=== PATIENT | female | born 1940 | race Caucasian/White ===

== ENCOUNTER 2020-08-17 13:12 | Outpatient (CLI) | payer MEDICARE, OTHER, SELFPAY ==
--- NOTE | ~2020-08-17 | DEXA_ITS ---
Bone Density Report Name: Catherine March Age: 79 Sex: Female Ethnicity: White Date of : 1940 Indication: postmenopausal; screening for osteoporosis; height loss; prior fracture; asthma or emphysema; Referring Provider: Elder Valenzuela Study: Bone densitometry was performed. Exam Date: August 17, 2020 Accession number: [id number] Bone Density: Region BMD T-score Z-score Classification AP Spine (L1, L2, L4) 1.262 2.1 4.8 Normal Femoral Neck (Left) 0.629 -2.0 0.4 Osteopenia Total Hip (Left) 0.817 -1.0 1.1 Normal Femoral Neck (Right) 0.689 -1.4 0.9 Osteopenia Total Hip (Right) 0.852 -0.7 1.4 Normal Total Hip Mean 0.835 -0.9 1.3 Normal World Health Organization criteria for BMD impression classify patients as: Normal (T-score at or above -1.0), Osteopenia (T-score between -1.0 and -2.5), or Osteoporosis (T-score at or below -2.5). 10-year Fracture Risk(1): Major Osteoporotic Fracture 22% Hip Fracture 5.8% Reported Risk Factors: [place] (), Neck BMD=0.629, BMI=29.0, previous fracture (1) FRAX(R) Version 3.08. Fracture probability calculated for an untreated patient. Fracture probability may be lower if the patient has received treatment. Clinical Information Provided by Patient: Has had a low trauma fracture Has used the following medications: Vitamin D Has the following medical conditions: Asthma or Emphysema Patient maximum height was 61.9 Menopause Age: 39 No regular weight bearing exercise Onset of menses at age 12 Number of children 3 Impression: The patient has low bone mass, based on the Left Femoral Neck T-score. The patient has an estimated ten-year risk of hip fracture of 5.8% and an estimated ten-year risk of major fracture of 22%, based on the WHO FRAX algorithm. The patient has risk factors, including: previous fracture. Discussion: BONE DENSITY IS LOW AT ONE OR MORE SKELETAL SITES. THE PATIENT'S BMD AND CLINICAL RISK FACTORS CONTRIBUTE TO THIS PATIENT'S HIGH RISK OF FRACTURE. This patient's lowest T-score is low at one or more skeletal sites. It meets the World Health Organization's (WHO) criteria for ?low bone mass? (T-score between -1.0 and -2.5). The patient's 10-year risk of hip fracture and 10 year risk of a major osteoporotic fracture as calculated by FRAX exceeds the threshold where pharmacological therapy is recommended by the National Osteoporosis Foundation (NOF). However, all treatment decisions require clinical judgment and consideration of individual patient factors, including patient preferences, comorbidities, previous drug use, risk factors not captured in the FRAX model (e.g., frailty, falls, vitamin D deficiency, increased bone turnover, interval significant decline in bone density) and possible under or overestimation of fracture risk by FRAX. The
== END 2020-08-17 13:13 ==
PROVIDERS: PCP Family Medicine; Visit Provider Physician Assistant Medical
DX: Z78.0 Asymptomatic menopausal state (principal); M85.852 Other specified disorders of bone density and structure, left thigh; M85.851 Other specified disorders of bone density and structure, right thigh
CPT/HCPCS: 77080

== ENCOUNTER 2020-08-17 15:12 | Outpatient (CLI) | payer MEDICARE, SELFPAY ==
--- NOTE | ~2020-08-17 | US_ITS ---
EXAMINATION: US carotid duplex BI DATE: 08/17/2020 15:42 INDICATION: Occlusion and stenosis of bilateral carotid arteries. TECHNIQUE: Grayscale, color Doppler, and pulsed Doppler images of the cervical carotid arteries were obtained. The degree of vessel stenosis is placed in one of the following categories: normal, <50%, 5 0-69%, >=70% but less than near-occlusion, near-occlusion, or total occlusion. Note that percent sten osis relative to normal distal artery lumen diameter is indirectly measured from velocity measurement s as described by Osmani, et al. Radiology 2003; 229:340-346. COMPARISON: Ultrasound 02/18/2018 FINDINGS: RIGHT: The right common carotid artery (CCA) peak systolic velocity (PSV) is 78 cm/s. The right internal car otid artery (ICA) PSV is 120 cm/s. The right ICA end-diastolic velocity (EDV) is 28 cm/s. The right I CA/CCA PSV ratio is 1.5. Grayscale and color Doppler images yield an estimate of <50% diameter reduct ion from plaque in the ICA. There is antegrade flow in the right vertebral artery. LEFT: The left CCA PSV is 80 cm/s. The left ICA PSV is 139 cm/s. The left ICA EDV is 28 cm/s. The left ICA/ CCA PSV ratio is 1.7. Grayscale and color Doppler images yield an estimate of <50% diameter reduction from plaque in the ICA. There is antegrade flow in the left vertebral artery. IMPRESSION: 1. <50% stenosis in the right internal carotid artery. 2. <50% stenosis in the left internal carotid artery. Reviewed, dictated and finalized at location A.
== END 2020-08-17 15:13 | disposition home or self-care (01) ==
PROVIDERS: PCP Family Medicine; Visit Provider Physician Assistant Medical
DX: I65.23 Occlusion and stenosis of bilateral carotid arteries (principal); Z78.0 Asymptomatic menopausal state
CPT/HCPCS: 93880

== ENCOUNTER → 2020-09-13 02:18 | Outpatient (CLI) | payer MEDICARE, SELFPAY ==
[2020-09-13 19:19] LABS: SARS-CoV-2 RNA PCR Negative
== END ==
PROVIDERS: PCP Family Medicine; Visit Provider Internal Medicine Gastroenterology
DX: Z01.812 Encounter for preprocedural laboratory examination (principal); Z20.822 Contact with and (suspected) exposure to COVID-19
CPT/HCPCS: C9803; U0003; U0005

== ENCOUNTER 2020-09-16 00:42 | Day surgery (SDC) | payer MEDICARE, OTHER, SELFPAY ==
[2020-09-03 15:10] VITALS: BMI 26.6
[2020-09-16 07:02] VITALS: BP 157/67; PULSE 61; RESP 18; TEMP 36.4; O2SAT 100; BMI 26.6
--- NOTE | 2020-09-16 07:15 | WPDANESEPPF ---
Anes - Initial Pre Proc Eval Procedure: Operation Date: 09/16/20 08:00 Proposed Procedures p Colonoscopy - Fam Bojorquez MD Date/Time: 09/16/20 07:15 Surgeon: Fam Bojorquez MD Pre Op Diagnosis: positive cologuard Patient Data Age: 80 Gender: F Height: 4 ft 11 in Weight: 60 kg Last Vital Signs Temp 36.4 C L 09/16/20 07:02 Pulse 61 09/16/20 07:02 Resp 18 09/16/20 07:02 BP 157/67 H 09/16/20 07:02 Pulse Ox 100 09/16/20 07:02 Allergies Allergy/AdvReac Type Severity Reaction Status Date / Time amoxicillin Allergy Intermediate Hives / Verified 09/16/20 07:01 Red Face glucosamine Allergy Intermediate Other Verified 09/16/20 07:01 hyaluronic acid Allergy Intermediate KIDNEYS Verified 09/16/20 07:01 Iodine and Iodide Containing Allergy Intermediate KIDNEYS Verified 09/16/20 07:01 Produc NSAIDS (Non-Steroidal Allergy Intermediate KIDNEYS Verified 09/16/20 07:01 Anti-Inflamma codeine Allergy Unknown Unknown Verified 09/16/20 07:01 iodine Allergy Unknown Unknown Verified 09/16/20 07:01 Penicillins Allergy Unknown Unknown Verified 09/16/20 07:01 phenytoin Allergy Unknown Unknown Verified 09/16/20 07:01 Tnpevzg-Amh-Uxv Reductase Allergy Unknown Unknown Verified 09/16/20 07:01 Inhibitor Sulfa (Sulfonamide Allergy Unknown Unknown Verified 09/03/20 15:03 Antibiotics) OTHER Allergy Unknown Other Uncoded 09/03/20 15:03 ANTI-ARTHRITIC MEDS AdvReac Intermediate SWELLING Uncoded 09/03/20 15:03 Home Medications Medication Instructions Recorded Confirmed Type fluticasone propionate 50 2 spray NASAL DAILY PRN #54.6 ml 04/29/19 09/03/20 Rx mcg/actuation nasal spray,suspension nitroglycerin 0.4 mg sublingual 0.4 mg SUBLINGUAL Q5M PRN #20 07/01/19 09/03/20 Rx tablet tablet trazodone 100 mg tablet 200 mg PO .QHS #180 tablet 11/26/19 09/03/20 Rx gabapentin 100 mg capsule 100 mg PO BID #180 cap 05/27/20 09/03/20 Rx albuterol sulfate 90 mcg/actuation 2 inh INHALATION Q4H PRN #8.5 g 07/26/20 09/03/20 Rx aerosol inhaler aspirin 81 mg tablet,delayed 81 mg PO DAILY 07/26/20 09/03/20 History release torsemide 10 mg tablet 10 mg PO QAM tablet 07/26/20 09/03/20 History alirocumab 75 mg/mL subcutaneous 75 mg SUB-Q .every two weeks #8 ml 07/28/20 09/03/20 Rx pen injector febuxostat 40 mg tablet 40 mg PO DAILY #90 tablet 07/28/20 09/03/20 Rx hydrocodone 5 mg-acetaminophen 325 1 tablet PO QHS PRN #30 tablet 07/28/20 09/03/20 Rx mg tablet amlodipine 2.5 mg PO Q2D 09/03/20 09/03/20 History dicyclomine 20 mg PO Q6H PRN 09/03/20 09/03/20 History pantoprazole 40 mg PO DAILY 09/03/20 09/03/20 History spironolactone 12.5 mg PO Q2D 09/03/20 09/03/20 History carvedilol 12.5 mg tablet See Rx Instructions .ROUTE 09/07/20 Rx .COMPLEX #180 tablet Patient hx anesthesia problems: other (delayed awakening) Family hx anesthesia problems: none PMFSH Past Medical History Medical History Atherosclerotic heart disease of [place] coronary artery with angina pectoris (01/30/18) Singleton's esophagus without dysplasia (01/30/18) Chronic kidney disease, stage 4 (severe) COPD (chronic obstructive pulmonary disease) with chronic bronchitis (01/30/18) Essential hypertension Gastro-esophageal reflux (01/30/18) Hypertensive chronic kidney disease with stage 1 through stage 4 chronic kidney disease, or unspecified chronic kidney disease (01/30/18) Mixed hyperlipidemia Nonrheumatic aortic (valve) stenosis (01/30/18) Positive colorectal cancer screening using Cologuard test Postmenopause Surgical History Surgical History Presence of aortocoronary bypass graft (01/30/18) Family History Family History Father Diabetes mellitus Family history of cardiovascular disease Cerebrovascular accident Family history of congestive h
[2020-09-16] MEDS: LACTATED RINGERS 1,000 ML 150 ML IV CONT (07:20)
--- NOTE | 2020-09-16 08:10 | WPDGICN ---
Assessment and Plan Assessment and plan (1) Positive colorectal cancer screening using Cologuard test: Code(s): R19.5 - Other fecal abnormalities Status: Acute Assessment and Plan: ColoGuard test apparently was recently performed. Plan is to perform colonoscopy given this finding. (2) IBS (irritable bowel syndrome): Code(s): K58.9 - Irritable bowel syndrome without diarrhea Status: Acute Assessment and Plan: Patient gives a long history of irritable bowel syndrome. Plan is to encourage fiber supplementation. She gives a questionable history of ulcerative colitis that will be evaluated at time of colonoscopy. (3) Gastro-esophageal reflux: Onset Date: 01/30/18 Code(s): K21.9 - Gastro-esophageal reflux disease without esophagitis Status: Acute Assessment and Plan: GE reflux disease appears stable. Continue present therapy. GI Consult Note Consult date/time: 09/16/20 08:10 HPI: Catherine March is a 80 year old female Seen in evaluation at the request of Dr. Casanova. Patient apparently had recent positive cologuard test.Patient desires neoplasia screening. In the past she was told that she had ulcerative colitis. This was followed by a doctor in [facility]. She states she is on no medications. For many years she has been treated for irritable bowel syndrome. Previous colonoscopy findings are not immediately available. Family history is reported to be noncontributory. Patient's current weight appetite bowel movements normal. She denies any bleeding or weight loss. 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 Currently she swallows without difficulty. She denies heartburn. Review of Systems Review of Systems: All systems reviewed & are unremarkable except as noted in HPI and below [facility] Past Medical History Medical History (Updated 09/16/20 @ 08:13 by Fam Bojorquez MD) Atherosclerotic heart disease of [place] coronary artery with angina pectoris (01/30/18) Singleton's esophagus without dysplasia (01/30/18) Chronic kidney disease, stage 4 (severe) COPD (chronic obstructive pulmonary disease) with chronic bronchitis (01/30/18) Essential hypertension Gastro-esophageal reflux (01/30/18) Hypertensive chronic kidney disease with stage 1 through stage 4 chronic kidney disease, or unspecified chronic kidney disease (01/30/18) Mixed hyperlipidemia Nonrheumatic aortic (valve) stenosis (01/30/18) Positive colorectal cancer screening using Cologuard test Postmenopause Surgical History Surgical History Presence of aortocoronary bypass graft (01/30/18) Family History Family History Father Diabetes mellitus Family history of cardiovascular disease Cerebrovascular accident Family history of congestive heart failure Grandparent Diabetes mellitus Hypertension Family history of cardiovascular disease Cerebrovascular accident Family history of congestive heart failure Mother Family history of congenital heart disease Family history of malignant melanoma Other Family history of irritable bowel syndrome Social History Social History Years smoked: 40 Smoking status: Former smoker Tobacco type: cigarettes Second hand tobacco smoke exposure: No Smoking end date: 05/07/09 Alcohol intake: former Substance use: never Substance use type: does not use Living arrangements: alone Gender identity (if verbalized by the patient): Female Spiritual care concerns: No Meds Home Medications and Allergies Home Medications Medication Instructions Recorded Confirmed Type fluticasone propionate 50 2 spray NASAL DAILY PRN #54.6 ml 04/29/19 09/16/20 Rx mc
[2020-09-16 08:14] VITALS: BP 146/63; PULSE 57; RESP 14; O2SAT 100
[2020-09-16 08:24] VITALS: BP 148/68; PULSE 56; RESP 14; O2SAT 100
[2020-09-16 08:33] VITALS: BP 157/92; PULSE 54; RESP 14; O2SAT 100
== END 2020-09-16 08:45 | disposition home or self-care (01) ==
PROVIDERS: PCP Family Medicine; Visit Provider Internal Medicine Gastroenterology
PROC: 0DJD8ZZ Inspection of Lower Intestinal Tract, Via Natural or Artificial Opening Endoscopic (ICD-10-PCS; CPT 45378; principal; 2020-09-16 08:00)
DX: R19.5 Other fecal abnormalities (principal); D12.2 Benign neoplasm of ascending colon; D12.0 Benign neoplasm of cecum; K63.5 Polyp of colon; K57.30 Diverticulosis of large intestine without perforation or abscess without bleeding; K64.8 Other hemorrhoids; K58.9 Irritable bowel syndrome, unspecified; K21.9 Gastro-esophageal reflux disease without esophagitis; I25.10 Atherosclerotic heart disease of native coronary artery without angina pectoris; I12.9 Hypertensive chronic kidney disease with stage 1 through stage 4 chronic kidney disease, or unspecified chronic kidney disease; N18.4 Chronic kidney disease, stage 4 (severe); J44.9 Chronic obstructive pulmonary disease, unspecified; E78.2 Mixed hyperlipidemia; I35.0 Nonrheumatic aortic (valve) stenosis; Z95.1 Presence of aortocoronary bypass graft; Z87.891 Personal history of nicotine dependence; Z79.51 Long term (current) use of inhaled steroids; Z79.82 Long term (current) use of aspirin; Z79.891 Long term (current) use of opiate analgesic
CPT/HCPCS: 45385; 88305; J2704; J7120

== ENCOUNTER 2021-02-11 14:59 | Outpatient (CLI) | payer MEDICARE, OTHER, SELFPAY ==
--- NOTE | ~2021-02-11 | CT_ITS ---
EXAMINATION: CT diagnostic chest wo con DATE: 02/11/2021 15:23 INDICATION: Cough, unspecified TECHNIQUE: Computed tomography (CT) of the chest was performed without intravenous contrast. The dose -length product (DLP) was 191.12 mGy-cm. Automated exposure control and iterative reconstruction tech nique were employed. COMPARISON: None FINDINGS: There are scattered 1 to 2 mm nodules of the lungs, likely infectious or inflammatory. No f ocal airspace opacities are identified. There is no pleural effusion or pneumothorax. Calcified pulmo nary nodules and calcified right hilar and mediastinal lymph nodes are consistent with old granulomat ous disease. Cardiomegaly is noted. There is a moderate-sized sliding hiatal hernia. Suture anchors a re present in the right humeral head. The gallbladder is surgically absent. There is moderate thoraci c spondylosis. A 3 cm cyst is noted in the left kidney. IMPRESSION: 1. Scattered small nodules of the lungs, likely infectious or inflammatory. Reviewed, dictated and finalized at location F.
== END 2021-02-11 15:00 | disposition home or self-care (01) ==
LOC: ANHIMG 15:04
PROVIDERS: PCP Family Medicine; Visit Provider Family Medicine
DX: R05.9 Cough, unspecified (principal); R91.8 Other nonspecific abnormal finding of lung field
CPT/HCPCS: 71250

== ENCOUNTER 2021-09-28 09:33 | Outpatient (CLI) | payer MEDICARE, OTHER, SELFPAY ==
--- NOTE | ~2021-09-28 | XR_ITS ---
XR chest 2V 09/28/2021 09:53 Indication: Bilateral pulmonary nodules seen on prior examination. Procedure: PA and lateral views of the chest Comparison: 01/31/2018 Findings: Heart size normal. There is hiatal hernia. Status post median sternotomy for CABG. Spinal s timulator leads noted overlying the mid thoracic spine. Nodule seen on prior CT measure 1-2 mm which are below the limits of resolution for chest x-ray examination.. Recommend correlation with CT for fo llow-up interval change. Impression: 1: No acute cardiopulmonary disease. Recommend correlation with CT to assess for interval change in p ulmonary nodules seen on prior examination. Reviewed, dictated and finalized at location A. Impression: 1: No acute cardiopulmonary disease. Recommend correlation with CT to assess fo r interval change in pulmonary nodules seen on prior examination.
== END 2021-09-28 09:34 | disposition home or self-care (01) ==
PROVIDERS: PCP Family Medicine; Visit Provider Family Medicine
DX: J42 Unspecified chronic bronchitis (principal); R93.89 Abnormal findings on diagnostic imaging of other specified body structures
CPT/HCPCS: 71046

== ENCOUNTER 2021-10-04 11:06 | Outpatient (CLI) | payer MEDICARE, OTHER, SELFPAY ==
--- NOTE | ~2021-10-04 | CT_ITS ---
EXAMINATION: CT diagnostic chest wo con DATE: 10/04/2021 11:23 INDICATION: Cough, pulmonary nodules TECHNIQUE: Computed tomography (CT) of the chest was performed without intravenous contrast. The dose -length product (DLP) was 165.50 mGy-cm. Automated exposure control and iterative reconstruction tech nique were employed. COMPARISON: 02/11/2021 FINDINGS: There is no focal airspace opacity in the medial aspect of the right lung apex. There are a lso subtle airspace opacities of the right upper lobe. There is no pleural effusion or pneumothorax. Previously described small pulmonary nodules are stable to decreased in size, consistent with infecti on/inflammation. Calcified pulmonary nodules and calcified right hilar and mediastinal lymph nodes ar e consistent with old granulomatous disease. Cardiomegaly is noted. There are no pathologically enlar ged thoracic lymph nodes. Changes of prior cardiac surgery are noted. There is a moderate-sized slidi ng hiatal hernia. The gallbladder is surgically absent. There is a 3.4 cm cyst of the left kidney. Th ere is moderate thoracic spondylosis. IMPRESSION: 1. Airspace opacities of the right upper lobe, consistent with pneumonia. 2. Chronic small scattered nodules of the lungs, stable to decreased in size, consistent with infecti on/inflammation. Reviewed, dictated and finalized at location F. IMPRESSION: 1. Airspace opacities of the right upper lobe, consistent with pneumonia. 2. Chronic small scattered nodules of the lungs, stable to decreased in size, c onsistent with infection/inflammation.
== END 2021-10-04 11:07 | disposition home or self-care (01) ==
PROVIDERS: PCP Family Medicine; Visit Provider Family Medicine
DX: R93.89 Abnormal findings on diagnostic imaging of other specified body structures (principal); R91.8 Other nonspecific abnormal finding of lung field
CPT/HCPCS: 71250

== ENCOUNTER 2021-10-20 13:37 | Emergency (ER) | payer MEDICARE, OTHER, SELFPAY ==
[2021-10-20] VITALS (7 sets, daily range): BP systolic 169–231; BP diastolic 48–75; PULSE 49–63; RESP 15–24; TEMP 36.7; O2SAT 94–98
--- NOTE | ~2021-10-20 | XR_ITS ---
XR chest 2V DATE: 10/20/2021 14:33 INDICATION: Cough, chest pain, shortness of breath TECHNIQUE: PA and lateral views COMPARISON: 10/05/2019 CT chest 09/28/2021 2 view chest FINDINGS: Status post sternotomy and coronary artery bypass graft surgery. Heart size is borderline.. Aortic arch calcification. Moderate hiatal hernia. No pulmonary infiltrate or consolidation, pleural effusion or pulmonary vascular congestion or pneumo thorax is detected. Status post cholecystectomy. Neurostimulator leads overlying thoracic spinal canal. 2. 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 Osteopenia Dextroscoliosis and degenerative change of the thoracolumbar spine. IMPRESSION: Status post sternotomy/CABG No active cardiopulmonary disease is evident Moderate hiatal hernia Reviewed, dictated and finalized at location A.
--- NOTE | 2021-10-20 14:16 | ED.GENADULT ---
HPI - General Adult General Chief complaint: Shortness of Breath/Dyspnea Stated complaint: sob Time Seen by Provider: 10/20/21 13:55 History of Present Illness HPI narrative: 81-year-old female presents emergency room secondary to discomfort to the right portion of her chest anteriorly. She is also had just a mild cough. Patient had x-ray confirmed pneumonia a couple months ago underwent a course of treatment with antibiotics and got better. Then in September she had another x-ray which was not confirmatory followed by CT scan which confirmed that she did have pneumonia and treated with antibiotics again. This in the same area now which is a right anterior chest just adjacent to the sternal border more inferiorly where she is having this discomfort. She had a history of cardiac disease having undergone coronary artery bypass grafting 2 times. She states this is nothing like her prior cardiac pain. She denies any chills or any fevers. She not having a productive cough. She was just concerned she may be developing pneumonia again. Related Data Home Medications Medication Instructions Recorded Confirmed aspirin 81 mg tablet,delayed 81 mg PO DAILY 07/26/20 09/27/21 release (Adult Low Dose Aspirin) ascorbic acid (vitamin C) 1,000 mg 1 g PO DAILY 09/27/21 09/27/21 tablet cholecalciferol (vitamin D3) 25 25 mcg PO DAILY 09/27/21 09/27/21 mcg (1,000 unit) capsule omega 3-dpi-ony-fish oil 100 cap PO 09/27/21 09/27/21 mg-160 mg-1,000 mg capsule (Fish Oil) Allergies Allergy/AdvReac Type Severity Reaction Status Date / Time amoxicillin Allergy Intermediate Hives / Verified 09/27/21 10:47 Red Face glucosamine Allergy Intermediate Other Verified 09/27/21 10:47 hyaluronic acid Allergy Intermediate KIDNEYS Verified 09/27/21 10:47 Iodine and Iodide Containing Allergy Intermediate KIDNEYS Verified 09/27/21 10:47 Produc NSAIDS (Non-Steroidal Allergy Intermediate KIDNEYS Verified 09/27/21 10:47 Anti-Inflamma codeine Allergy Unknown Unknown Verified 09/27/21 10:47 iodine Allergy Unknown Unknown Verified 09/27/21 10:47 Penicillins Allergy Unknown Unknown Verified 09/27/21 10:47 phenytoin Allergy Unknown Unknown Verified 09/27/21 10:47 Ovovmcp-GJS-PxO Reductase Allergy Unknown Unknown Verified 09/27/21 10:47 Inhibitor [Ggozubc-Zae-Owg Reductase Inhibitor] Sulfa (Sulfonamide Allergy Unknown Unknown Verified 09/27/21 10:47 Antibiotics) OTHER Allergy Unknown Other Uncoded 06/17/21 11:37 ANTI-ARTHRITIC MEDS AdvReac Intermediate SWELLING Uncoded 06/17/21 11:37 Review of Systems Review of Systems: CONSTITUTIONAL: Denies fever, chills, or sweats. EYES: Denies visual changes, redness, or discharge. ENT: Denies rhinorrhea, congestion, sore throat, or otalgia. CARDIOVASCULAR: Denies palpitations, or edema. Anterior chest discomfort RESPIRATORY: Mild nonproductive cough GASTROINTESTINAL: Denies abdominal pain, nausea, vomiting, or diarrhea. GENITOURINARY: Denies dysuria or hematuria. SKIN: Denies rash or itching. MUSCULOSKELETAL: Denies back pain, joint pain, or myalgia. NEUROLOGIC: Denies headache, numbness, or weakness. PSYCHIATRIC: Denies anxiety or depression. [facility] Past Medical History Medical History Atherosclerotic heart disease of [place] coronary artery with angina pectoris (01/30/18) Singleton's esophagus without dysplasia (01/30/18) Chronic kidney disease, stage 4 (severe) Essential hypertension Gastro-esophageal reflux (01/30/18) egd distal esophageal web, hiatal hernia, dilated, no barretts Mixed hyperlipidemia Nonrheumatic aortic (valve) stenosis (01/30/18) Positive colorectal cancer screening using Cologuard test 5.13 colonoscopy cecal polyp, ascending colon polyp, diverticulosis, internal hemmie Post-nasal drip Postmenopause Surgical History Surgical History Presence
--- NOTE | 2021-10-20 14:18 | ECG_ITS ---
Measurements Intervals [place] Rate: 55 P: 10 WA: 170 QRS: -39 QRSD: 130 T: 41 QT: 480 QTc: 460 Interpretive Statements SINUS BRADYCARDIA LEFT ANTERIOR SUPERIOR HEMIBLOCK RIGHT BUNDLE BRANCH BLOCK [120+ ms QRS DURATION, UPRIGHT V1, 40+ ms S IN I/aVL/V4/V5/V6] MODERATE VOLTAGE CRITERIA FOR LVH, CONSIDER NORMAL VARIANT [MEETS CRITERIA IN ONE OF: R(aVL), S(V1), R(V5), R(V5/V6)+S(V1)] NO PREVIOUS ECG AVAILABLE FOR COMPARISON Electronically Signed On 10-21-2021 14:25:48 CDT by Isaac Huggins M.D.
[2021-10-20 14:39] LABS: Basophils Percent Auto 0.5 % (0.2-1.2); Eosinophils Absolute Auto 0.4 K/mm3 (0-0.3); Eosinophils Percent Auto 5.4 % (0-4.4); Hematocrit 32.7 % (37.0-47.0); Hemoglobin 10.9 g/dL (12.0-15.0); Immature Granulocyte Absolute 0.02 K/mm3 (0.00-0.031); Immature Granulocyte Percent A 0.3 % (0-0.5); Lymphocytes Absolute Auto 1.86 K/mm3 (0.9-3.2); Lymphocytes Percent Auto 23.8 % (18.3-44.2); Mean Corpuscular HGB Conc 33.3 g/dl (32-36); Mean Corpuscular Hemoglobin 31.8 pg (26-34); Mean Corpuscular Volume 95.3 fl (80-100); Mean Platelet Volume 9.8 fl (7.4-10.4); Monocytes Absolute Auto 0.6 K/mm3 (0.1-0.6); Monocytes Percent Auto 7.8 % (2.6-8.5); Neutrophils Absolute Auto 4.9 K/mm3 (1.3-6.7); Neutrophils Percent Auto 62.2 % (45.5-73.1); Platelet Count Result 259 k/mm3 (150-375); Red Blood Count 3.43 M/mm3 (4.2-5.4); Red Cell Distribution Width 13.5 % (11.5-14.5); White Blood Count 7.8 K/mm3 (4.5-10.0)
[2021-10-20 15:00] LABS: Troponin I < 0.012 ng/mL (0.000-0.034)
== END 2021-10-20 16:07 | disposition home or self-care (01) ==
PROVIDERS: Emergency Provider Emergency Medicine; PCP Family Medicine
DX: R07.89 Other chest pain (principal); I25.119 Atherosclerotic heart disease of native coronary artery with unspecified angina pectoris; I12.9 Hypertensive chronic kidney disease with stage 1 through stage 4 chronic kidney disease, or unspecified chronic kidney disease; N18.4 Chronic kidney disease, stage 4 (severe); E78.2 Mixed hyperlipidemia; I35.0 Nonrheumatic aortic (valve) stenosis; K22.70 Barrett's esophagus without dysplasia; Z86.010 Personal history of colon polyps; Z95.1 Presence of aortocoronary bypass graft; Z87.891 Personal history of nicotine dependence; K44.9 Diaphragmatic hernia without obstruction or gangrene; Z79.82 Long term (current) use of aspirin; R00.1 Bradycardia, unspecified; I45.2 Bifascicular block; R94.31 Abnormal electrocardiogram [ECG] [EKG]
CPT/HCPCS: 36415; 71046; 84484; 85025; 93005; 99284